=== PATIENT | female | born 1940 | race Caucasian/White ===

== ENCOUNTER 2022-08-10 10:26 | Inpatient (IN) ==
[2022-08-10] MEDS ORDERED: DILTIAZEM 25 MG/5 ML VIAL IV STA (10:37)
[2022-08-10] MEDS ORDERED: SODIUM CHLORIDE 0.9% 1,000 ML IV STA (10:41)
[2022-08-10 11:24] LABS: Basophils % 0.1 % (0.0-0.8); Eosinophils % 0.4 % (0.00-10.9); Hematocrit 39.1 VOL% (35.7-47.0); Hemoglobin 13.1 GM/DL (12.0-16.0); Immature Granulocytes % 0.3 %; Immature Granulocytes Absolute 0.02 #; Lymphocytes # 1.9 10*3/uL (1.4-4.0); Lymphocytes % 24.2 % (21.3-54.2); Mean Corpuscular HGB Conc 33.5 GM/DL (32-36); Mean Corpuscular Volume 93.1 FL (87-102); Mean Platelet Volume 10.9 FL (9.6-12.0); Monocytes # 0.9 10*3/uL (0.11-0.8); Monocytes % 11.3 % (1.7-12.7); Neutrophils % 63.7 % (38.7-73.9); Platelet Count 173 T/CUMM (130-400); Red Cell Distribution Width 12.9 % (9.3-17.3); White Blood Count 7.6 T/CUMM (4-12)
[2022-08-10 11:44] LABS: Anisocytosis 1+; Macrocytosis Slight; Platelet Estimate Normal
[2022-08-10 11:47] LABS: Albumin 3.3 G/DL (3.4-5.0); Bilirubin,Total 0.6 MG/DL (0.20-1.00); Calcium 9.1 MG/DL (8.5-10.1); Osmolality,Calculated 274.7 MOS/KG (273-304); Potassium 3.6 MMOL/L (3.5-5.1); Total Protein 6.7 G/DL (6.4-8.2)
[2022-08-10] MEDS ORDERED: ASPIRIN CHEW 81 MG TABLET PO STA (14:52)
[2022-08-10] MEDS ORDERED: ACETAMINOPHEN 325 MG TABLET PO PRN (14:55)
[2022-08-10] MEDS ORDERED: DEXTROSE 10% 250 ML BAG IV PRN (14:55)
[2022-08-10] MEDS ORDERED: ONDANSETRON 4 MG/2 ML VIAL IV PRN ×2 (14:55→15:53)
[2022-08-10] MEDS ORDERED: GLUCAGON 1 MG VIAL IM PRN (14:55)
[2022-08-10] MEDS: ENOXAPARIN 80 MG/0.8 ML SYRINGE SUBCUT SCH (15:43)
[2022-08-10] MEDS: DOCUSATE SODIUM 100 MG CAPSULE PO SCH (20:37)
[2022-08-10] MEDS ORDERED: DOCUSATE SODIUM 100 MG CAPSULE PO SCH (21:00)
[2022-08-10] MEDS: ENALAPRIL 5 MG TABLET PO SCH (21:03)
[2022-08-10] MEDS: cefTRIAXone 1,000 MG in SODIUM CHLORIDE 0.9% 100 ML IV SCH (21:58)
[2022-08-11 03:01] LABS: Bilirubin,Urine Negative (Negative); Blood, Urine Small mg/dL (Negative); Glucose,Urine (UA) Negative (Negative); Ketones,Urine Negative (Negative); Nitrite,Urine Negative (Negative); Protein,Urine Negative (Negative); Urine Appearance Clear (Clear); Urine Color Yellow (Yellow); Urine Urobilinogen 0.2 eU/dL (<2.0); Urine pH 6.5 (4.5-8.0)
[2022-08-11 03:03] LABS: Bacteria,Urine Occasional /HPF (Few); Mucus,Urine Occasional /LPF (Occasional); RBC,Urine 1 /HPF (0-4); Squamous Epithelial Cell,Urine Occasional /HPF (0-10)
[2022-08-11] MEDS: ENOXAPARIN 80 MG/0.8 ML SYRINGE SUBCUT SCH ×2 (03:58→14:35)
[2022-08-11 05:59] LABS: Basophils % 0.4 % (0.0-0.8); Eosinophils # 0.1 10*3/uL (0.0-0.87); Eosinophils % 1.4 % (0.00-10.9); Hematocrit 35.7 VOL% (35.7-47.0); Hemoglobin 11.7 GM/DL (12.0-16.0); Immature Granulocytes % 0.4 %; Immature Granulocytes Absolute 0.02 #; Lymphocytes % 34.9 % (21.3-54.2); Mean Corpuscular HGB Conc 32.8 GM/DL (32-36); Mean Corpuscular Volume 93.9 FL (87-102); Mean Platelet Volume 10.5 FL (9.6-12.0); Monocytes # 0.7 10*3/uL (0.11-0.8); Monocytes % 11.9 % (1.7-12.7); Platelet Count 205 T/CUMM (130-400); White Blood Count 5.7 T/CUMM (4-12)
[2022-08-11 06:16] LABS: Albumin 2.9 G/DL (3.4-5.0); Bilirubin,Total 0.5 MG/DL (0.20-1.00); Calcium 8.4 MG/DL (8.5-10.1); Osmolality,Calculated 284.8 MOS/KG (273-304); Potassium 3.5 MMOL/L (3.5-5.1); Total Protein 6.3 G/DL (6.4-8.2)
[2022-08-11] MEDS ORDERED: PANTOPRAZOLE 40 MG TABLET PO SCH (09:00)
[2022-08-11] MEDS ORDERED: METOPROLOL SUCCINATE XL 25 MG TABLET PO SCH ×2 (09:00→17:00)
[2022-08-11] MEDS: PANTOPRAZOLE 40 MG TABLET PO SCH (09:50)
[2022-08-11] MEDS: ENALAPRIL 5 MG TABLET PO SCH ×2 (09:51→21:07)
[2022-08-11] MEDS: DOCUSATE SODIUM 100 MG CAPSULE PO SCH ×2 (11:14→21:08)
[2022-08-11] MEDS: predniSONE 10 MG TABLET PO SCH (12:47)
[2022-08-11] MEDS: CHOLECALCIFEROL 1,000 UNIT TABLET PO SCH (12:47)
[2022-08-11] MEDS: ZINC GLUCONATE 50 MG TABLET PO SCH (12:48)
[2022-08-11] MEDS: cefTRIAXone 1,000 MG in SODIUM CHLORIDE 0.9% 100 ML IV SCH (21:02)
[2022-08-11] MEDS: METOPROLOL SUCCINATE XL 25 MG TABLET PO SCH (21:07)
[2022-08-11] MEDS: ASCORBIC ACID 500 MG TABLET PO SCH (21:08)
[2022-08-12] MEDS: ENOXAPARIN 80 MG/0.8 ML SYRINGE SUBCUT SCH (02:04)
[2022-08-12] MEDS: DOCUSATE SODIUM 100 MG CAPSULE PO SCH ×2 (09:26→22:29)
[2022-08-12] MEDS: ZINC GLUCONATE 50 MG TABLET PO SCH (09:33)
[2022-08-12] MEDS: ASCORBIC ACID 500 MG TABLET PO SCH ×2 (09:33→21:33)
[2022-08-12] MEDS: predniSONE 10 MG TABLET PO SCH (09:33)
[2022-08-12] MEDS: CHOLECALCIFEROL 1,000 UNIT TABLET PO SCH (09:33)
[2022-08-12] MEDS: PANTOPRAZOLE 40 MG TABLET PO SCH (09:33)
[2022-08-12] MEDS: METOPROLOL SUCCINATE XL 25 MG TABLET PO SCH ×2 (09:33→22:29)
[2022-08-12] MEDS: ENALAPRIL 5 MG TABLET PO SCH ×2 (09:34→21:33)
[2022-08-12] MEDS: APIXABAN 5 MG TABLET PO SCH (21:33)
[2022-08-12] MEDS: cefTRIAXone 1,000 MG in SODIUM CHLORIDE 0.9% 100 ML IV SCH (21:33)
[2022-08-13] MEDS: PANTOPRAZOLE 40 MG TABLET PO SCH (10:36)
[2022-08-13] MEDS: METOPROLOL SUCCINATE XL 25 MG TABLET PO SCH ×2 (10:36→22:27)
[2022-08-13] MEDS: ENALAPRIL 5 MG TABLET PO SCH ×2 (10:36→22:24)
[2022-08-13] MEDS: APIXABAN 5 MG TABLET PO SCH ×2 (10:36→22:23)
[2022-08-13] MEDS: ASCORBIC ACID 500 MG TABLET PO SCH ×2 (10:36→22:22)
[2022-08-13] MEDS: predniSONE 10 MG TABLET PO SCH (10:36)
[2022-08-13] MEDS: CHOLECALCIFEROL 1,000 UNIT TABLET PO SCH (10:37)
[2022-08-13] MEDS: ZINC GLUCONATE 50 MG TABLET PO SCH (10:37)
[2022-08-13] MEDS: DOCUSATE SODIUM 100 MG CAPSULE PO SCH ×2 (12:15→22:23)
[2022-08-13] MEDS: cefTRIAXone 1,000 MG in SODIUM CHLORIDE 0.9% 100 ML IV SCH (22:26)
[2022-08-14] MEDS: PANTOPRAZOLE 40 MG TABLET PO SCH (10:28)
[2022-08-14] MEDS: APIXABAN 5 MG TABLET PO SCH (10:28)
[2022-08-14] MEDS: predniSONE 10 MG TABLET PO SCH (10:28)
[2022-08-14] MEDS: ENALAPRIL 5 MG TABLET PO SCH (10:29)
[2022-08-14] MEDS: CHOLECALCIFEROL 1,000 UNIT TABLET PO SCH (10:29)
[2022-08-14] MEDS: ZINC GLUCONATE 50 MG TABLET PO SCH (10:29)
[2022-08-14] MEDS: METOPROLOL SUCCINATE XL 25 MG TABLET PO SCH (10:29)
[2022-08-14] MEDS: ASCORBIC ACID 500 MG TABLET PO SCH (10:29)
[2022-08-14] MEDS: DOCUSATE SODIUM 100 MG CAPSULE PO SCH (10:30)
[2022-08-14 18:01] VITALS: BP 133/75
== END 2022-08-14 18:00 | disposition home or self-care (01) | DRG 280 ==
LOC: EDBD → EDUNIT# → N.ED 10:26 → N.TELEN 15:53
PROVIDERS: ADMIT Family Medicine; ATTEND Family Medicine

== ENCOUNTER 2022-09-12 00:25 | Inpatient (IN) ==
[2022-09-12] MEDS ORDERED: DILTIAZEM 100 MG VIAL.ADD IV ONE (00:32)
[2022-09-12] MEDS ORDERED: DILTIAZEM 50 MG/10 ML VIAL IV STA (00:33)
[2022-09-12] MEDS ORDERED: DILTIAZEM 25 MG/5 ML VIAL IV ONE (00:33)
[2022-09-12 00:46] LABS: Basophils % 0.3 % (0.0-0.8); Eosinophils # 0.1 10*3/uL (0.0-0.87); Eosinophils % 1.5 % (0.00-10.9); Hematocrit 39.2 VOL% (35.7-47.0); Hemoglobin 12.9 GM/DL (12.0-16.0); Immature Granulocytes % 0.4 %; Immature Granulocytes Absolute 0.03 #; Lymphocytes # 3.6 10*3/uL (1.4-4.0); Lymphocytes % 45.8 % (21.3-54.2); Mean Corpuscular HGB Conc 32.9 GM/DL (32-36); Mean Platelet Volume 10.4 FL (9.6-12.0); Monocytes # 0.5 10*3/uL (0.11-0.8); Monocytes % 6.5 % (1.7-12.7); Neutrophils % 45.5 % (38.7-73.9); Platelet Count 241 T/CUMM (130-400); Red Blood Count 4.17 MC/CUMM (3.8-5.5); Red Cell Distribution Width 13.2 % (9.3-17.3); White Blood Count 7.88 T/CUMM (4-12)
[2022-09-12 00:54] LABS: PT Patient Result 11.1 SECS (10.1-12.1)
[2022-09-12 01:04] LABS: Albumin 3.3 G/DL (3.4-5.0); Bilirubin,Total 0.5 MG/DL (0.20-1.00); Calcium 8.5 MG/DL (8.5-10.1); Osmolality,Calculated 286.1 MOS/KG (273-304); Total Protein 6.2 G/DL (6.4-8.2)
[2022-09-12] MEDS: DILTIAZEM INJ 100 MG in SODIUM CHLORIDE 0.9% 100 ML IV SCH (01:09)
[2022-09-12] MEDS ORDERED: ONDANSETRON 4 MG/2 ML VIAL IV PRN (01:21)
[2022-09-12] MEDS ORDERED: PROMETHAZINE 25 MG/1 ML VIAL IM PRN (01:21)
[2022-09-12] MEDS ORDERED: MORPHINE 2 MG/1 ML SYRINGE IV PRN (01:21)
[2022-09-12] MEDS ORDERED: NALOXONE 0.4 MG/ML VIAL IV PRN (01:21)
[2022-09-12] MEDS ORDERED: BISACODYL 5 MG TABLET PO PRN (01:21)
[2022-09-12] MEDS: SODIUM CHLORIDE 0.9% 1,000 ML IV SCH ×2 (02:04→17:31)
[2022-09-12 05:19] LABS: Basophils % 0.3 % (0.0-0.8); Eosinophils % 0.4 % (0.00-10.9); Hematocrit 37.5 VOL% (35.7-47.0); Hemoglobin 12.5 GM/DL (12.0-16.0); Immature Granulocytes % 0.3 %; Immature Granulocytes Absolute 0.02 #; Lymphocytes # 2.4 10*3/uL (1.4-4.0); Lymphocytes % 31.7 % (21.3-54.2); Mean Corpuscular HGB Conc 33.3 GM/DL (32-36); Mean Corpuscular Volume 94.5 FL (87-102); Mean Platelet Volume 10.3 FL (9.6-12.0); Monocytes # 0.6 10*3/uL (0.11-0.8); Neutrophils % 59.3 % (38.7-73.9); Platelet Count 210 T/CUMM (130-400); Red Blood Count 3.97 MC/CUMM (3.8-5.5); Red Cell Distribution Width 13.2 % (9.3-17.3); White Blood Count 7.53 T/CUMM (4-12)
[2022-09-12 05:48] LABS: Albumin 3.3 G/DL (3.4-5.0); Bilirubin,Total 0.5 MG/DL (0.20-1.00); Calcium 8.8 MG/DL (8.5-10.1); Osmolality,Calculated 291.4 MOS/KG (273-304); Potassium 3.7 MMOL/L (3.5-5.1); Total Protein 6.5 G/DL (6.4-8.2)
[2022-09-12] MEDS ORDERED: METOPROLOL SUCCINATE XL 50 MG TABLET PO SCH (08:30)
[2022-09-12] MEDS ORDERED: DILTIAZEM CD 120 MG CAPSULE PO SCH (09:00)
[2022-09-12] MEDS: MULTIVITAMIN (BEROCCA) TABLET PO SCH (09:05)
[2022-09-12] MEDS: METOPROLOL SUCCINATE XL 50 MG TABLET PO SCH (09:05)
[2022-09-12] MEDS: ASCORBIC ACID 500 MG TABLET PO SCH (09:05)
[2022-09-12] MEDS: ASPIRIN EC 81 MG TABLET PO SCH (09:05)
[2022-09-12] MEDS: APIXABAN 5 MG TABLET PO SCH ×2 (09:05→20:41)
[2022-09-12] MEDS: VERAPAMIL SR 120 MG TABLET PO SCH ×2 (09:05→20:41)
[2022-09-12] MEDS: PANTOPRAZOLE 40 MG TABLET PO SCH (09:05)
[2022-09-12] MEDS: DOCUSATE SODIUM 100 MG CAPSULE PO SCH ×2 (09:05→20:41)
[2022-09-13] MEDS: DILTIAZEM INJ 100 MG in SODIUM CHLORIDE 0.9% 100 ML IV SCH (04:01)
[2022-09-13] MEDS: SODIUM CHLORIDE 0.9% 1,000 ML IV SCH (04:03)
[2022-09-13] MEDS ORDERED: POLYETHYLENE GLYCOL POWDER 17 GM PACK PO SCH (09:00)
[2022-09-13] MEDS ORDERED: DILTIAZEM CD 120 MG CAPSULE PO SCH (09:00)
[2022-09-13] MEDS: ASCORBIC ACID 500 MG TABLET PO SCH (09:46)
[2022-09-13] MEDS: PANTOPRAZOLE 40 MG TABLET PO SCH (09:46)
[2022-09-13] MEDS: METOPROLOL SUCCINATE XL 50 MG TABLET PO SCH (09:47)
[2022-09-13] MEDS: APIXABAN 5 MG TABLET PO SCH (09:47)
[2022-09-13] MEDS: DOCUSATE SODIUM 100 MG CAPSULE PO SCH (09:47)
[2022-09-13] MEDS: MULTIVITAMIN (BEROCCA) TABLET PO SCH (09:47)
[2022-09-13] MEDS: ASPIRIN EC 81 MG TABLET PO SCH (09:48)
[2022-09-13 12:27] VITALS: BP 160/70
== END 2022-09-13 15:30 | disposition home or self-care (01) | DRG 309 ==
LOC: N.ED 00:25 → N.EDINP 01:47 → N.TELES 03:10
PROVIDERS: ADMIT Family Medicine; ATTEND Family Medicine